=== PATIENT | male | born 1965 | race Caucasian/White ===

== ENCOUNTER 2025-03-04 18:36 | Emergency (ER) | payer BC, SELFPAY ==
--- OUTSIDE RECORDS SUMMARY | 1999-09-15 09:00 | XMS_ITS | Continuity of Care Document ---
Author Organization [facility] Address [address] [place] [address] [address] [place] [address] [place] [address] Phone Care Team Providers Care French Polisher Name Role Phone Daniel Carmichael Unavailable Unavailable Advance Directives Directive Yes / No Effective Date File Name No Information Encounters Encounter Description Practice Location Reason(s) For Visit Diagnoses Date Provider Providers Copied on Encounter [facility], [address], [place], [place], [id number], [place] tel:[phone] SEC [facility] [place] No Information Mar-2 0-200 0 Doisy Edward. [address] [facility] [place] , [address], [place], [address], [place]. tel:[phone] Family History Family Member Type Diagnosis Age At Onset No Information Payers Payer name Insurance type Covered republican ID Authoriza tion(s) No Information Social History Type Description Quantity Date Captured Comments Sex Male Smoking Status No Information Chief Complaint And Reason For Visit No Information Reason For Referral Reason For Referral No Information History Of Present Illness Encounter Date Complaint History Of Prese nt Illness No Information Functional Status Date Functional Assessmen t No Information Instructions Date Instruction Additional Infor mation No Information Assessments Type Assessment Date No Information Patient Care Teams Name Effective Dates (start - stop) Status Members No Information
--- NOTE | ~2025-03-04 | CT_ITS ---
EXAMINATION: CT brain wo jennifer, 03/04/2025 19:47 CDT HISTORY: [place] COMPARISON: No comparisons available. Technique: Axial images obtained of the brain without contrast. One or more of the following dose reduction techniques were used: automated exposure control, adjustment of the mA and/or kV according to patient size, use of iterative reconstruction technique. Findings: No acute infarct or parenchymal hemorrhage. No abnormal mass or mass effect. No midline shift. No extra-axial fluid collections. No hydrocephalus. Mastoid air cells unremarkable. Sinuses and orbits unremarkable. No acute fracture. No significant facial or scalp soft tissue swelling evident. No radiopaque foreign body is seen. Impression: 1.No acute intracranial abnormality. Reviewed, dictated and finalized at location A. Impression: 1.No acute intracranial abnormality.
[2025-03-04 18:46] VITALS: BP 112/57; PULSE 80; RESP 16; TEMP 37; O2SAT 100
--- NOTE | 2025-03-04 19:11 | ECG_ITS ---
Test Date: 2025-03-04 19:20:53 Measurements Intervals Bly Rate: 76 P: 83 ID: [id number] QRS: 67 QRSD: 78 T: 68 QT: 356 QTc: 401 Interpretive Statements SINUS RHYTHM No previous ECG available for comparison Electronically Signed On 03-05-2025 10:30:05 CDT by Stu Schuster M.D.
[2025-03-04 19:18] VITALS: BP 133/71; PULSE 80; RESP 16; TEMP 36.5; O2SAT 100
--- NOTE | 2025-03-04 19:21 | ED_ITS ---
HPI - General Adult General Chief complaint: Weakness Stated complaint: weakness Time Seen by Provider: 03/04/25 19:17 History of Present Illness HPI narrative: patient is a 5-year-old male who presents emergency department this evening complaining of generalized weakness. States that he has been feeling weak all day but approximately an hour prior to arrival he felt as though his symptoms worsened. Complaining of bilateral arm tingling, states that he feels generally weak in all of his extremities. Also complains of a headache behind his right eye. Denies any vision changes. Patient also states that he has been smoking weed for the past few days and has been complaining of lightheadedness. Otherwise he is currently alert and oriented to person, place, time and situation, moving all extremities spontaneously, no neurological deficits noted, NIH 0. Related Data Home Medications ?Medication ?Instructions ?Recorded ?Confirmed ?Last Taken ?Type cyclobenzaprine 10 mg tablet 10 mg PO TID 05/31/24 Un known History dapagliflozin propanediol 10 mg 10 mg PO DAILY 4 Unknown History tablet (Farxiga) dicyclomine 10 mg capsule 10 mg PO QID 05/31/24 Unkno wn History pioglitazone 15 mg tablet 15 mg PO DAILY 05/31/24 Unk nown History sitagliptin phosphate 100 mg 100 mg PO DAILY 05/31/24 Unknown History tablet (Januvia) Allergies Allergy/AdvReac Type Severity Reaction Status Date / Time venom-honey bee Allergy Severe Anaphylaxis Verified 05/31/24 08:04 Penicillins Allergy Unknown ? Verified 05/31/24 08:04 Review of Systems 2 Review of Systems: All systems are reviewed and are negative unless stated otherwise in the HPI. [facility], [facility] Past Medical History Medical History Diverticular disease Family History Family History Other Acute myocardial infarction Carcinoma of colon Diabetes mellitus Heart disease Hypercholesteremia Multiple sclerosis Social History Social History Smoking packs per day: 0.5 Smoking cigarettes per day: 10.0 Smoking status: Current every day smoker Alcohol intake: never Substance use: never Exam 2 Narrative: General: Alert, awake, afebrile, in no acute distress. HEENT: PERRL, no rhinorrhea, no post nasal drip, oropharynx clear. Neck: Trachea midline, no JVD, no lymphadenopathy. Cardiovascular: Regular rate and rhythm, no murmurs, rubs or gallops, no peripheral edema. Respiratory: Clear to auscultation bilaterally, no tachypnea, no wheezing, no rhonchi, no rubs, no respiratory distress. Abdomen: Soft, nontender, nondistended, no rebound, no guarding, no peritoneal signs. Musculoskeletal: No joint swelling or deformity, normal muscle tone. Skin: No rashes or petechia, no signs of infection. Psychiatric: Alert and oriented, normal behavior and judgment for situation. Neurological: Alert and oriented to person, place, and time. Follows all commands. No focal deficits, 5/5 motor strength in bilateral upper and lower extremity, sensation intact and equal in the bilateral upper and lower extremity, cranial nerves 2-12 grossly intact, speech is clear and fluent, gait intact and normal. Course Vital Signs Vital signs: Vital Signs Temperature 98.6 F 03/04/25 18:46 Pulse Rate 80 03/04/25 18:46 Respiratory Rate 16 03/04/25 18:46 Blood Pressure 112/57 L 03/04/25 18:46 Pulse Oximetry 100 03/04/25 18:46 Oxygen Delivery Room Air 03/04/25 18:46 Temperature 97.7 F 03/04/25 19:18 Pulse Rate 80 03/04/25 19:18 Respiratory Rate 16 03/04/25 19:18 Blood Pressure 133/71 03/04/25 19:18 Pulse Oximetry 100 03/04/25 19:18 Oxygen Delivery Room Air 03/04/25 19:18 Medical Decision Making [facility] Narrative Medical decision making narrative: The patient was evaluated by myself in the emergency department. History is obtained from patient who is an independent historian and physical exam was performed. External medical records were reviewed at this time. IV was established and pertinent tests were ordered. EKG was obtained which revealed sinus rhythm rate of 74 beats per minute, no evidence of acute ischemia. EKG was independently interpreted by me and is currently pending official cardiology read. Laboratory results obtained revealing a serum glucose level of 228 otherwise unremarkable. At this time patient was administered 1 L IV fluid bolus with normal saline. Urinalysis unremarkable. UDS positive for cannabinoids. Imaging studies obtained included CT brain without IV contrast which was independently interpreted by me revealing no acute process, which is pending final radiology interpretation. Differential diagnosis considerations include dehydration, electrolyte derangements, acute viral syndrome, CVA although unlikely given lack of focal neurological symptoms and NIH of 0. Comorbidities impacting this visit include none. I have evaluated and discussed social determinants of health with the patient that could potentially impact subsequent diagnosis and treatment plans. On repeat assessment of the patient, reevaluation revealed that the patient is doing well and is in no acute distress. Patient symptoms have improved since he arrived to our emergency department. Repeat vital signs were all reviewed and noted to be stable. Differential diagnosis and treatment plan were discussed with the patient at bedside. Patient agrees with discussion and after shared medical decision making agrees with discharge. All questions were answered to the patient's satisfaction. Patient will follow up with his PCP in 3-5 days. Patient was provided with strict return precautions and instructed to return to the emergency department if any new or worsening symptoms develop. The patient was discharged in stable condition. Vital Signs Vital Signs: Vital Signs Temperature 98.6 F 03/04/25 18:46 Pulse Rate 80 03/04/25 18:46 Respiratory Rate 16 03/04/25 18:46 Blood Pressure 112/57 L 03/04/25 18:46 Pulse Oximetry 100 03/04/25 18:46 Oxygen Delivery Room Air 03/04/25 18:46 Temperature 97.7 F 03/04/25 19:18 Pulse Rate 80 03/04/25 19:18 Respiratory Rate 16 03/04/25 19:18 Blood Pressure 133/71 03/04/25 19:18 Pulse Oximetry 100 03/04/25 19:18 Oxygen Delivery Room Air 03/04/25 19:18 Lab Data 03/04/25 19:31 03/04/25 19:31 Labs: Lab Results 03/04/25 03/04/25 03/04/25 Range/Units 19:19 19:31 20:56 WBC 8.4 (4.5-10.0) K/mm3 RBC 3.04 L (4.6-6.20) M/mm3 Hgb 9.9 L (14.0-18.0) g/dL Hct 30.1 L (42.0-52.0) % MCV 99.0 (80-100) fl MCH 32.6 (26-34) pg MCHC 32.9 (32-36) g/dl RDW 13.9 (11.5-14.5) % Plt Count 293 (150-375) k/mm3 MPV 9.5 (7.4-10.4) fl Immature Gran % (Auto) 0.5 (0-0.5) % Neut % (Auto) 74.3 H (45.5-73.1) % Lymph % (Auto) 16.1 L (18.3-44.2) % [place] % (Auto) 8.1 (2.6-8.5) % Eos % (Auto) 0.5 (0-4.4) % Baso % (Auto) 0.5 (0.2-1.2) % Lymph # (Auto) 1.35 (0.9-3.2) K/mm3 [place] # (Auto) 0.7 H (0.1-0.6) K/mm3 Eos # (Auto) 0.0 (0-0.3) K/mm3 Baso # (Auto) 0.0 (0.0-0.1) K/mm3 Abs Immat Gran (auto) 0.04 H (0.00-0.031) K/mm3 Absolute Neuts (auto) 6.2 (1.3-6.7) K/mm3 Absolute Nucleated RBC 0.000 (0.0-0.012) K/mm3 Nucleated RBC % 0.0 (0.0-0.2) % Sodium 139 (137-145) mmol/L Potassium 4.8 (3.4-5.0) mmol/L Chloride 102 (98-107) mmol/L Carbon Dioxide 31 H (22-30) mmol/L Anion Gap 6 (4-12) mmol/L BUN 13 (9-20) mg/dL Creatinine 0.84 (0.7-1.3) mg/dL Estim Creat Clear Calc 65 ml/min Estimated GFR > 60 (59 - ) Glucose 228 H (65-110) mg/dL POC Capillary Glucose 231 H (65-105) mg/dl Calcium 9.2 (8.4-10.2) mg/dL Magnesium 1.9 (1.6-2.3) mg/dL Total Bilirubin 0.3 (0.2-1.3) mg/dL AST 28 (17-59) U/L ALT 33 (6-50) U/L Alkaline Phosphatase 92 (38-126) U/L Total Protein 6.6 (6.3-8.2) g/dL Albumin 3.8 (3.5-5.1) g/dL Urine Color Yellow (Yellow) Urine Appearance Cloudy H (Clear) Urine pH 6.0 (5.0-9.0) Ur Specific [place] 1.038 H (1.001-1.035) Urine Protein Negative (Negative) mg/dL Urine Glucose (UA) 3+ H (Negative) mg/dL Urine Ketones Negative (Negative) mg/dL Ur Blood (Man) Negative (Negative) Urine Nitrate Negative (Negative) Urine Bilirubin Negative (Negative) Urine Urobilinogen 1.0 (<2.0) mg/dL Leukocyte Esterase Rfl Negative (Negative) LENA/UL Urine RBC 0-2 (0-2) /hpf Urine WBC 0-5 (0-3) /hpf Ur Squamous Epith Cells None seen (Few) /hpf Urine Bacteria None seen /hpf Urine Casts 0-2 Urine Opiates Screen Negative (Negative) Urine Methadone Screen Negative (Negative) Ur Barbiturates Screen Negative (Negative) Ur Phencyclidine Scrn Negative (Negative) Ur Amphetamine Screen Negative (Negative) U Benzodiazepines Scrn Negative (Negative) Urine Cocaine Screen Negative (Negative) U Cannabinoids Screen Positive A (Negative) Discharge Plan Discharge Clinical Impression: Generalized weakness, Marijuana use Patient Disposition: Home Condition: Improved Instructions: Antibiotic Form, Weakness (ED) Additional Instructions: Please follow-up with family doctor within the next 3-5 days. Return to emergency department if any new or worsening symptoms develop. Patient Language: Mosotho Prescriptions: No Action cyclobenzaprine 10 mg tablet 10 mg PO TID dicyclomine 10 mg capsule 10 mg PO QID dapagliflozin propanediol [Farxiga] 10 mg tablet 10 mg PO DAILY Januvia 100 mg tablet 100 mg PO DAILY insulin glargine [Lantus Solostar U-100 Insulin] 100 unit/mL (3 mL) insulin pen 30 unit subcut QAM Qty: 15 0RF pioglitazone 15 mg tablet 15 mg PO DAILY (DME) pen needle, diabetic [TRUEplus Pen Needle] 31 gauge x 3/16 needle See Rx Instructions .ROUTE Qty: 1200 0RF Rx Instructions: As directed Follow-up/Referrals: PHYSICIAN,RESPIRATORY CLINICIAN [Primary Care Provider, Internal Medicine] Doc Polo MD [Physician, Family Practice] - 3 Days Time of Disposition: 21:33
[2025-03-04 19:37] LABS: Hematocrit 30.1 % (42.0-52.0); Hemoglobin 9.9 g/dL (14.0-18.0); Immature Granulocyte Percent A 0.5 % (0-0.5); Lymphocytes Absolute Auto 1.35 K/mm3 (0.9-3.2); Mean Corpuscular HGB Conc 32.9 g/dl (32-36); Mean Corpuscular Hemoglobin 32.6 pg (26-34); Mean Corpuscular Volume 99.0 fl (80-100); Nucleated Red Blood Cells Absolute Auto 0.000 K/mm3 (0.0-0.012); Nucleated Red Blood Cells Perc 0.0 % (0.0-0.2); Platelet Count Result 293 k/mm3 (150-375); Red Blood Count 3.04 M/mm3 (4.6-6.20); White Blood Count 8.4 K/mm3 (4.5-10.0)
[2025-03-04 19:51] LABS: Alanine Aminotransferase 33 U/L (6-50); Albumin Level 3.8 g/dL (3.5-5.1); Alkaline Phosphatase 92 U/L (38-126); Anion Gap 6 mmol/L (4-12); Aspartate Amino Transferase 28 U/L (17-59); Bilirubin,Total 0.3 mg/dL (0.2-1.3); Blood Urea Nitrogen 13 mg/dL (9-20); Calcium 9.2 mg/dL (8.4-10.2); Carbon Dioxide 31 mmol/L (22-30); Chloride 102 mmol/L (98-107); Estimated CRCL calculation 65 ml/min; Estimated Glomerular Filt Rate > 60; Glucose 228 mg/dL (65-110); Magnesium 1.9 mg/dL (1.6-2.3); Potassium 4.8 mmol/L (3.4-5.0); Sodium 139 mmol/L (137-145); Total Protein 6.6 g/dL (6.3-8.2)
[2025-03-04 21:19] LABS: Add Urine Microscopic? YES; Appearance Urine Cloudy (Clear); Glucose Urine UA 3+ mg/dL (Negative); Leukocyte Esterase Ur Negative LEU/UL (Negative); Nitrate Urine Negative (Negative); Non Pathogenic Casts 0-2; Specific Grav Ur 1.038 (1.001-1.035)
[2025-03-04 21:26] LABS: Cannabinoid Screen Urine Positive (Negative)
[2025-03-04] MEDS: SODIUM CHLORIDE 0.9% IV 1,000 ML 999 ML IV CONT (22:07)
[2025-03-04] MEDS: ACETAMINOPHEN 500 MG TABLET 1000 MG PO (22:40)
[2025-03-04 23:17] VITALS: BP 124/67; PULSE 69; RESP 16; TEMP 37.1; O2SAT 100
== END 2025-03-04 23:17 | disposition home or self-care (01) ==
PROVIDERS: Emergency Provider Emergency Medicine
DX: R53.1 Weakness (principal); F12.90 Cannabis use, unspecified, uncomplicated; F17.210 Nicotine dependence, cigarettes, uncomplicated
CPT/HCPCS: 36415; 70450; 80053; 80307; 81001; 82948; 83735; 85025; 93005; 96360; 99284; A9270; J7030